=== PATIENT | female | born 1995 | race Two or more races ===

== ENCOUNTER 2017-02-12 13:00 | Emergency (ER) | payer OTHER ==
[~2017-02-12] VITALS: Ht 157.5 cm; Wt 87.3 kg
[2017-02-12 13:01] VITALS: BP 117/58
[2017-02-12] MEDS ORDERED: ONDANSETRON 4 MG ORAL DISINTEGRATING TAB (S0181) PO ONE (13:30)
[2017-02-12] MEDS ORDERED: ZOFR4TAB3 PO (13:40)
== END 2017-02-12 13:47 | disposition home or self-care (01) ==
LOC: M ED 13:00
DX: R11.0 Nausea (principal); F17.200 Nicotine dependence, unspecified, uncomplicated; Z88.0 Allergy status to penicillin